=== PATIENT | female | born 1970 | race Caucasian/White ===

== ENCOUNTER 2024-10-24 02:41 | Emergency (ER) | payer MEDICAID, OTHER ==
[~2024-10-24] VITALS: Ht 157.5 cm; Wt 52.2 kg
[2024-10-24 02:50] VITALS: O2SAT 98
== END 2024-10-24 04:50 | disposition left against medical advice (07) ==
LOC: ER 03:02
DX: U07.1 COVID-19 (principal)
CPT/HCPCS: A4606; A4663